=== PATIENT | male | born 1990 | race Caucasian/White ===

== ENCOUNTER 2019-03-18 09:03 | Emergency (ER) | payer OTHER ==
--- NOTE | 2019-03-18 09:17 | ED Physician Documentation ---
PD HPI OPHTHO - Stated complaint Stated Complaint: LEFT EYE REDNESS - History obtained from History obtained from: Patient - History of Present Illness Timing - onset: Yesterday Timing - duration: Days (2) Timing - details: Abrupt onset, Still present Location: Left Quality / character: Burning. No: Itching Associated symptoms: Redness, Discharge (mostly clear, without purulence per se.). No: Swelling, Matting, FB sensation Contributing factors: Recent URI (has some cough and nasal congestion for a week, which is improving, now with left eye symptoms.). No: Exposed to conjunctivitis Similar symptoms before: Has not had sx before Recently seen: Not recently seen Review of Systems Constitutional: denies: Fever, Chills Eyes: reports: Irritation. denies: Decreased vision, Photophobia Ears: denies: Ear pain Nose: reports: Rhinorrhea / runny nose (for a week). denies: Congestion Throat: denies: Sore throat Respiratory: reports: Cough (for a week, improved) GI: denies: Nausea, Vomiting, Diarrhea Skin: denies: Rash, Lesions PD PAST MEDICAL HISTORY - Past Medical History Cardiovascular: None Respiratory: None Neuro: None Endocrine/Autoimmune: None - Present Medications Home Medications: Ambulatory Orders Medication Instructions Recorded Confirmed Sulfacetm Na/Prednisol AC 2 drops LEFTEYE QID #1 bottle 03/18/19 [Blephamide Eye Drops] - Allergies Allergies/Adverse Reactions: Allergies Allergy/AdvReac Type Severity Reaction Status Date / Time No Known Drug Allergies Allergy Verified 03/18/19 09:29 PD ED PE NORMAL - Vitals Vital signs reviewed: Yes - General General: Alert and oriented X 3, No acute distress, Well developed/nourished - HEENT HEENT: PERRL, EOMI (without pain on movement. Left eye with redness and some conjunctival edema. No purulence per se, but watery. Right eye okay. ), Pharynx benign - Neck Neck: Supple, no meningeal sign, No adenopathy - Cardiac Cardiac: RRR, No murmur - Respiratory Respiratory: Clear bilaterally - Derm Derm: Normal color, Warm and dry, No rash Results - Vitals Vitals: Vital Signs - 24 hr 03/18/19 09:29 Temperature 36.4 C L Heart Rate 86 Respiratory 16 Rate Blood Pressure 160/82 H O2 Saturation 99 Oxygen O2 Source Room air PD MEDICAL DECISION MAKING - ED course Complexity details: considered differential (consider viral but is just the one eye. So will treat as bacterial in case. 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 This will help reduce inflammation and also if it is bacterial will take care of that. Recheck if not improved over the next few days. This may be viral in part of the head cold symptoms that you are having. It may be secondary bacterial infection to just the eye. You should be okay to resume work again tomorrow after being on the eyedrops today. Forms: Activity restrictions Discharge Date/Time: 03/18/19 10:16
[2019-03-18 09:31] VITALS: BP 160/82
[2019-03-18] MEDS ORDERED: CHERRY SYRUP 10 ML UDC PO ONE (09:43)
[2019-03-18] MEDS ORDERED: DEXAMETHASONE 10 MG/ML VIAL PO STA (09:43)
== END 2019-03-18 10:16 | disposition home or self-care (01) ==
LOC: ED 09:03
DX: H10.32 Unspecified acute conjunctivitis, left eye (principal)
CPT/HCPCS: 99283; 99284; A9270

== ENCOUNTER 2021-11-01 15:17 | Outpatient (CLI) | payer OTHER ==
--- NOTE | 2021-11-01 16:10 | XRAY Report ---
PROCEDURE: Ribs 2 View RT INDICATIONS: RIGHT SIDED RIB PAIN TECHNIQUE: 3 views of the right ribs were acquired. COMPARISON: None FINDINGS: Surgical changes and devices: None. Bones and chest wall: No fractures or dislocations. No suspicious bony lesions. Overlying soft tis sues appear unremarkable. Lungs and pleura: The visualized lung appears clear. No pleural effusions or pneumothorax are visib le. IMPRESSION: Normal-appearing ribs, without fractures or focal abnormalities. No pneumothorax is seen. No lung consolidation. Reviewed by: Reebl Chung MD on 11/01/2021 3:09 PM [facility] Approved by: Rebel Chung MD on 11/01/2021 3:09 PM [facility] Station ID: [id number]
== END 2021-11-01 15:18 | disposition home or self-care (01) ==
LOC: DI.N 15:17
PROVIDERS: ATTEND Family Medicine
DX: R07.81 Pleurodynia (principal)